=== PATIENT | male | born 1985 | race Hispanic/Latino ===

== ENCOUNTER 2019-01-20 19:18 | Emergency (ER) | payer SELFPAY ==
[~2019-01-20] VITALS: Ht 154.9 cm; Wt 58.5 kg
--- OUTSIDE RECORDS SUMMARY | 2019-01-20 19:21 | XMS REPORT ---
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 Allergies, Adverse Reactions, Alerts Allergy Name Allergy Type Status Severity Reaction(s) Onset Date Inactive Date Treating Clinician Comments hydrocodone DA Active SV 2018-12-20 00:00:00 acetaminophen DA Active SV 2018-12-20 00:00:00 hydrocodone DA Active SV 2018-12-13 00:00:00 acetaminophen DA Active SV 2018-12-13 00:00:00 hydrocodone DA Active SV 2018-10-28 00:00:00 acetaminophen DA Active SV 2018-10-28 00:00:00 No Known Allergies DA Active U 2016-12-02 00:00:00 Medications This patient has no known medications. Encounters Start Date/Time End Date/Time Encounter Type Admission Type Attending Clinicians Care Facility Care Department Encounter ID 2018-10-22 10:16:00 2018-10-22 10:16:00 Emergency E [facility] [id number] 2018-10-20 13:36:00 2018-10-20 13:36:00 Outpatient E [facility] MED [id number] Results Test Description Test Time Test Comments Text Results Atomic Results Result Comments URINALYSIS COMPLETE 2018-12-20 23:26:00 UA COLOR (test code=COLU) YELLOW YELLOW UA APPEARANCE (test code=APPU) CLEAR CLEAR UA GLUCOSE DIPSTICK (test code=DGLUU) NORMAL MG/DL NORMAL UA BILIRUBIN DIPSTICK (test code=BILU) NEGATIVE MG/DL NEGATIVE UA KETONE DIPSTICK (test code=KETU) NEGATIVE MG/DL NEGATIVE UA SPECIFIC GRAVITY (test code=SGU) 1.005 1.003-1.030 UA BLOOD DIPSTICK (test code=TINY) NEGATIVE Yassine/mm3 NEGATIVE UA PH DIPSTICK (test code=VICKI) 7.0 5.0-9.0 UA PROTEIN DIPSTICK (test code=PROU) NEGATIVE MG/DL NEGATIVE UA UROBILINIOGEN DIPSTICK (test code=URO) NORMAL MG/DL NORMAL UA NITRITE DIPSTICK (test code=EMA) NEGATIVE NEGATIVE UA LEUKOCYTE ESTERASE DIPSTICK (test code=LEUU) NEGATIVE /mm3 NEGATIVE UA CULTURE NEEDED? (test code=UACULT) NEGATIVE, NO CULTURE Criteria Culture Chk DRUGS OF ABUSE SCREEN [id number] 23:26:00* Test Item Value Reference Range Comments UR COCAINE (test code=COCAU) NEGATIVE NEGATIVE Cut off Value: 300 ng/mL UR CANNABINOIDS (THC) (test code=CANU) NEGATIVE NEGATIVE Cut off Value: 50 ng/mL UR AMPHETAMINE (test code=AMPHU) NEGATIVE NEGATIVE Cut off Value: 1000 ng/mL UR BARBITURATE QUAL (test code=BARBQLU) NEGATIVE NEGATIVE Cut off Value: 200 ng/mL UR BENZODIAZEPINE (test code=BENZU) NEGATIVE NEGATIVE Cut off Value: 200 ng/mL UR OPIATES QUAL (test code=OPIAQLU) NEGATIVE NEGATIVE Cut off Value: 300 ng/mL UR PHENCYCLIDINE (PCP) (test code=PHENCU) NEGATIVE NEGATIVE Cut off Value: 25 ng/mL URINALYSIS [id number] 23:07:00* Test Item Value Reference Range Comments UA COLOR (test code=COLU) YELLOW YELLOW UA APPEARANCE (test code=APPU) CLEAR CLEAR UA GLUCOSE DIPSTICK (test code=DGLUU) NORMAL MG/DL NORMAL UA BILIRUBIN DIPSTICK (test code=BILU) NEGATIVE MG/DL NEGATIVE UA KETONE DIPSTICK (test code=KETU) NEGATIVE MG/DL NEGATIVE UA SPECIFIC GRAVITY (test code=SGU) 1.005 1.003-1.030 UA BLOOD DIPSTICK (test code=TINY) NEGATIVE Yassine/mm3 NEGATIVE UA PH DIPSTICK (test code=VICKI) 7.0 5.0-9.0 UA PROTEIN DIPSTICK (test code=PROU) NEGATIVE MG/DL NEGATIVE UA UROBILINIOGEN DIPSTICK (test code=URO) NORMAL MG/DL NORMAL UA NITRITE DIPSTICK (test code=EMA) NEGATIVE NEGATIVE UA LEUKOCYTE ESTERASE DIPSTICK (test code=LEUU) NEGATIVE /mm3 NEGATIVE UA CULTURE NEEDED? (test code=UACULT) Criteria Culture Chk DRUGS OF ABUSE SCREEN [id number] 23:07:00* Test Item Value Reference Range Comments UR COCAINE (test code=COCAU) NEGATIVE NEGATIVE Cut off Value: 300 ng/mL UR CANNABINOIDS (THC) (test code=CANU) NEGATIVE NEGATIVE Cut off Value: 50 ng/mL UR AMPHETAMINE (test code=AMPHU) NEGATIVE NEGATIVE Cut off Value: 1000 ng/mL UR BARBITURATE QUAL (test code=BARBQLU) NEGATIVE NEGATIVE Cut off Value: 200 ng/mL UR BENZODIAZEPINE (test code=BENZU) NEGATIVE NEGATIVE Cut off Value: 200 ng/mL UR OPIATES QUAL (test code=OPIAQLU) NEGATIVE NEGATIVE Cut off Value: 300 ng/mL UR PHENCYCLIDINE (PCP) (test code=PHENCU) NEGATIVE NEGATIVE Cut off Value: 25 ng/mL URINALYSIS [id number] 22:48:00* Test Item Value Reference Range Comments UA COLOR (test code=COLU) YELLOW YELLOW UA APPEARANCE (test code=APPU) CLEAR CLEAR UA GLUCOSE DIPSTICK (test code=DGLUU) NORMAL MG/DL NORMAL UA BILIRUBIN DIPSTICK (test code=BILU) NEGATIVE MG/DL NEGATIVE UA KETONE DIPSTICK (test code=KETU) NEGATIVE MG/DL NEGATIVE UA SPECIFIC GRAVITY (test code=SGU) 1.005 1.003-1.030 UA BLOOD DIPSTICK (test code=TINY) NEGATIVE Yassine/mm3 NEGATIVE UA PH DIPSTICK (test code=VICKI) 7.0 5.0-9.0 UA PROTEIN DIPSTICK (test code=PROU) NEGATIVE MG/DL NEGATIVE UA UROBILINIOGEN DIPSTICK (test code=URO) NORMAL MG/DL NORMAL UA NITRITE DIPSTICK (test code=EMA) NEGATIVE NEGATIVE UA LEUKOCYTE ESTERASE DIPSTICK (test code=LEUU) NEGATIVE /mm3 NEGATIVE UA CULTURE NEEDED? (test code=UACULT) Criteria Culture Chk DRUGS OF ABUSE SCREEN [id number] 22:48:00* Test Item Value Reference Range Comments UR COCAINE (test code=COCAU) NEGATIVE UR CANNABINOIDS (THC) (test code=CANU) NEGATIVE UR AMPHETAMINE (test code=AMPHU) NEGATIVE UR BARBITURATE QUAL (test code=BARBQLU) NEGATIVE UR BENZODIAZEPINE (test code=BENZU) NEGATIVE UR OPIATES QUAL (test code=OPIAQLU) NEGATIVE UR PHENCYCLIDINE (PCP) (test code=PHENCU) NEGATIVE POC VENOUS BLOOD [id number] 21:55:00* Test Item Value Reference Range Comments POC LACTIC ACID (test code=POCLAC) 1.27 MMOL/L 0.4-2.0 POC VENOUS BLOOD GAS PH (test code=POCPHV) 7.486 7.35-7.45 POC VENOUS BLOOD GAS PCO2 (test code=JAETCN2Z) 40.8 mmHg 35.0-45.0 POC VENOUS BLOOD GAS PO2 (test code=CRWAG6R) 75.0 mmHG 0-40 POC HCO3 VENOUS (test code=BVPGKQ4K) 30.8 MMOL/L 20-26 POC BASE EXCESS VENOUS (test code=POCBEV) 7 MMOL/L -3.0-3.0 POC O2 SATURATION VENOUS (test code=JQTS8FX) 96 % 72-77 [id number] 21:55:00* Test Item Value Reference Range Comments LIPASE (test code=LIP) 473 UNITS/L 23-300 COMPREHENSIVE METABOLIC [id number] 21:55:00* Test Item Value Reference Range Comments SODIUM (test code=NA) 138 MMOL/L 137-145 POTASSIUM (test code=K) 3.8 MMOL/L 3.5-5.1 CHLORIDE (test code=CL) 100 MMOL/L 98-107 CARBON DIOXIDE (test code=CO2) 27 MMOL/L 22-30 ANION GAP (test code=GAP) 15 MMOL/L 14-24 GLUCOSE (test code=GLU) 129 MG/DL 74-106 BLOOD UREA NITROGEN (test code=BUN) 13 MG/DL 9-20 GLOMERULAR FILTRATION RATE (test code=GFR) > 60 Reporting units: ml/min/1.73 m2 (Modified MDRD Formula)Reference Range: > or=60 ml/min/1.73 m2 CREATININE (test code=CREAT) 0.80 MG/DL 0.66-1.25 TOTAL PROTEIN (test code=PROT) 6.9 G/DL 6.2-7.6 ALBUMIN (test code=ALB) 4.0 G/DL 3.5-5.0 CALCIUM (test code=CA) 9.1 MG/DL 8.4-10.2 BILIRUBIN TOTAL (test code=BILT) 0.8 MG/DL 0.2-1.3 SGOT/AST (test code=AST) 24 UNITS/L 17-59 SGPT/ALT (test code=ALT) 26 UNITS/L 21-72 ALKALINE PHOSPHATASE (test code=ALKP) 60 UNITS/L 38-126 CBC W/AUTO [id number] 21:41:00* Test Item Value Reference Range Comments WHITE BLOOD CELL (test code=WBC) 8.7 K/MM3 3.8-9.8 RED BLOOD CELL (test code=RBC) 4.68 M/MM3 3.95-5.67 HEMOGLOBIN (test code=HGB) 14.3 G/DL 12.4-16.7 HEMATOCRIT (test code=HCT) 41.7 % 35.9-49.5 MEAN CELL VOLUME (test code=MCV) 89 fL 81.7-96.1 MEAN CELL HGB (test code=MCH) 30.6 pg 27.6-33.2 MEAN CELL HGB CONCETRATION (test code=MCHC) 34.3 % 32.9-35.5 RED CELL DISTRIBUTION WIDTH (test code=RDW) 13.0 % 12.1-15.2 PLATELET COUNT (test code=PLT) 187 K/MM3 129-368 MEAN PLATELET VOLUME (test code=MPV) 11.2 fl 7.4-10.4 NEUTROPHIL % (test code=NT%) 67.9 % 43-75 IMMATURE GRANULOCYTE % (test code=IG%) 0.5 % 0.0-2.0 LYMPHOCYTE % (test code=LY%) 20.0 % 14-44 MONOCYTE % (test code=MO%) 11.4 % 4-13 EOSINOPHIL % (test code=EO%) 0.1 % 0-6 BASOPHIL % (test code=BA%) 0.1 % 0-2 NUCLEATED RBC % (test code=NRBC%) 0.0 % 0-1.0 NEUTROPHIL # (test code=NT#) 5.88 K/mm3 2.0-7.6 IMMATURE GRANULOCYTE # (test code=IG#) 0.04 x10 3/uL 0-0.03 LYMPHOCYTE # (test code=LY#) 1.73 K/mm3 1.0-3.8 MONOCYTE # (test code=MO#) 0.99 K/mm3 0.1-0.8 EOSINOPHIL # (test code=EO#) 0.01 K/mm3 0.0-0.2 BASOPHIL # (test code=BA#) 0.01 K/mm3 0.0-0.2 NUCLEATED RBC # (test code=NRBC#) 0.00 K/mm3 0.0-0.1 - US ABDOMEN [id number] 12:04:00 Name: VÍCTOR ANTHONY [facility] : 1985 Age/S: 33 / M [address] [facility] Unit #: [id number] Loc: [place] [address] Phys: Fe Parker MD Acct: [id number] Dis Date: Status: ADM IN PHONE #: [phone] Exam Date: 12/20/2018 1130 FAX #: [phone] Reason: r/o gall stones EXAMS: CPT CODE: [id number] US ABDOMEN COMPLETE 43562 TECHNIQUE - US ABDOMEN COMPLETE . COMPARISON: CT abdomen and pelvis 12/13/2018 HISTORY: 33 years Male r/o gall stones FINDINGS: Pancreas: Normal in size and echogenicity. No focal lesions or pancreatic duct dilatation. Liver: Normal size. Normal echogenicity. No focal lesions. Liver measures 14.7 cm. Normal flow in the portal vein towards the liver. Gallbladder: Normal in distention. No stones. No wall thickening. Gallbladder wall measures 0.15cm. No pericholecystic fluid. Negative ultrasound Lamb sign. Biliary ducts: No intra or extrahepatic biliary dilatation. Common bile duct (CBD) measures 0.18 cm. Spleen: Normal echogenicity. 10.8 x 4.2 x 4.1 cm. Right Kidney: 10.2 x 4.1 x 5.1 cm. Normal echogenicity. No stones. No hydronephrosis. No focal lesions. Left Kidney: 11.2 x 4.9 x 5.4 cm. Normal echogenicity. No stones. No hydronephrosis. No focal lesions. Other: No ascites. IMPRESSION: No abnormalities demonstrated. No gallstones. at 1204 Reported and signed by: Jeovany Morse M.D. PAGE 1 Signed Report (CONTINUED) Name: VÍCTOR ANTHONY [facility] : 1985 Age/S: 33 / M [address] [facility] Unit #: [id number] Loc: [place] [address] Phys: Fe Parker MD Acct: [id number] Dis Date: Status: ADM IN PHONE #: [phone] Exam Date: 12/20/2018 1130 FAX #: [phone] Reason: r/o gall stones EXAMS: CPT CODE: [id number] US ABDOMEN COMPLETE 18650 <Continued> CC: Fe Parker MD; Elizabeth Wang MD Technologist: TONI ANAND RT(R),[facility] Trnnyb Date/Time: 12/20/2018 (1204) t.PHILIPPE Orig Print D/T: S: 12/20/2018 (4523) Probe: PAGE 2 Signed Report BASIC METABOLIC [id number] 06:41:00* Test Item Value Reference Range Comments SODIUM (test code=NA) 138 mmol/L 136-145 POTASSIUM (test code=K) 4.4 mmol/L 3.5-5.1 CHLORIDE (test code=CL) 102.0 mmol/L 98-107 CARBON DIOXIDE (test code=CO2) 21.0 mmol/L 21-32 ANION GAP (test code=GAP) 19.4 10-20 GLUCOSE (test code=GLU) 114 mg/dL 74-106 BLOOD UREA NITROGEN (test code=BUN) 19 mg/dL 7-18 GLOMERULAR FILTRATION RATE (test code=GFR) > 60 mL/min >=60 Estimated GFR by using Modified MDRD formula.Chronic kidney disease is defined as either kidney damageor GFR <60 mL/min/1.73 m2 for >3 months. CREATININE (test code=CREAT) 0.90 mg/dL 0.7-1.3 BUN/CREATININE RATIO (test code=BUN/CREA) 21.1 10-20 CALCIUM (test code=CA) 8.8 mg/dL 8.5-10.1 HEPATIC FUNCTION [id number] 06:41:00* Test Item Value Reference Range Comments TOTAL PROTEIN (test code=PROT) 7.5 gram/dL 6.4-8.2 ALBUMIN (test code=ALB) 4.3 g/dL 3.4-5.0 GLOBULIN (test code=GLOB) 3.2 gram/dL 2.7-4.2 ALBUMIN/GLOBULIN RATIO (test code=A/G) 1.3 0.75-1.50 BILIRUBIN TOTAL (test code=BILT) 1.00 mg/dL 0.0-1.0 BILIRUBIN DIRECT (test code=BILD) 0.21 mg/dL 0.0-0.20 SGOT/AST (test code=AST) 22 IUnit/L 15-37 SGPT/ALT (test code=ALT) 32 IUnit/L 12-78 ALKALINE PHOSPHATASE TOTAL (test code=ALKP) 91 IUnit/L 45-117 Note change in reference range due to change in reagent. [id number] 06:41:00* Test Item Value Reference Range Comments LIPASE (test code=LIP) 1130 U/L 73.0-393.0 BASIC METABOLIC [id number] 06:33:00* Test Item Value Reference Range Comments SODIUM (test code=NA) 138 mmol/L 136-145 POTASSIUM (test code=K) 4.4 mmol/L 3.5-5.1 CHLORIDE (test code=CL) 102.0 mmol/L 98-107 CARBON DIOXIDE (test code=CO2) mmol/L 21-32 ANION GAP (test code=GAP) 10-20 GLUCOSE (test code=GLU) mg/dL 74-106 BLOOD UREA NITROGEN (test code=BUN) mg/dL 7-18 GLOMERULAR FILTRATION RATE (test code=GFR) mL/min >=60 CREATININE (test code=CREAT) mg/dL 0.7-1.3 BUN/CREATININE RATIO (test code=BUN/CREA) 10-20 CALCIUM (test code=CA) mg/dL 8.5-10.1 HEPATIC FUNCTION [id number] 06:33:00* Test Item Value Reference Range Comments TOTAL PROTEIN (test code=PROT) gram/dL 6.4-8.2 ALBUMIN (test code=ALB) g/dL 3.4-5.0 GLOBULIN (test code=GLOB) gram/dL 2.7-4.2 ALBUMIN/GLOBULIN RATIO (test code=A/G) 0.75-1.50 BILIRUBIN TOTAL (test code=BILT) mg/dL 0.0-1.0 BILIRUBIN DIRECT (test code=BILD) mg/dL 0.0-0.20 SGOT/AST (test code=AST) IUnit/L 15-37 SGPT/ALT (test code=ALT) IUnit/L 12-78 ALKALINE PHOSPHATASE TOTAL (test code=ALKP) IUnit/L 45-117 [id number] 06:33:00* Test Item Value Reference Range Comments LIPASE (test code=LIP) U/L 73.0-393.0 CBC W/O [id number] 04:37:00* Test Item Value Reference Range Comments WHITE BLOOD CELL (test code=WBC) K/mm3 4.5-12.5 RED BLOOD CELL (test code=RBC) mill/mm3 4.0-5.8 HEMOGLOBIN (test code=HGB) gram/dL 13.0-17.5 HEMATOCRIT (test code=HCT) 51.8 % 42.0-52.0 MEAN CELL VOLUME (test code=MCV) fL 80-98 MEAN CELL HGB (test code=MCH) picogram 27.0-33.0 MEAN CELL HGB CONCETRATION (test code=MCHC) gram/dL 33.0-36.0 RED CELL DISTRIBUTION WIDTH (test code=RDW) % 11.6-16.2 PLATELET COUNT (test code=PLT) K/mm3 150-450 MEAN PLATELET VOLUME (test code=MPV) fL 6.7-11.0 CBC W/O [id number] 04:37:00* Test Item Value Reference Range Comments WHITE BLOOD CELL (test code=WBC) 9.6 K/mm3 4.5-12.5 RED BLOOD CELL (test code=RBC) 5.87 mill/mm3 4.0-5.8 HEMOGLOBIN (test code=HGB) 17.7 gram/dL 13.0-17.5 HEMATOCRIT (test code=HCT) 51.8 % 42.0-52.0 MEAN CELL VOLUME (test code=MCV) 88.2 fL 80-98 MEAN CELL HGB (test code=MCH) 30.2 picogram 27.0-33.0 MEAN CELL HGB CONCETRATION (test code=MCHC) 34.2 gram/dL 33.0-36.0 RED CELL DISTRIBUTION WIDTH (test code=RDW) 12.6 % 11.6-16.2 PLATELET COUNT (test code=PLT) 216 K/mm3 150-450 MEAN PLATELET VOLUME (test code=MPV) 10.8 fL 6.7-11.0 BASIC METABOLIC [id number] 21:02:00* Test Item Value Reference Range Comments SODIUM (test code=NA) 137 mmol/L 136-145 POTASSIUM (test code=K) 3.8 mmol/L 3.5-5.1 CHLORIDE (test code=CL) 102.0 mmol/L 98-107 CARBON DIOXIDE (test code=CO2) 24.0 mmol/L 21-32 ANION GAP (test code=GAP) 14.8 10-20 GLUCOSE (test code=GLU) 107 mg/dL 74-106 BLOOD UREA NITROGEN (test code=BUN) 19 mg/dL 7-18 GLOMERULAR FILTRATION RATE (test code=GFR) > 60 mL/min >=60 Estimated GFR by using Modified MDRD formula.Chronic kidney disease is defined as either kidney damageor GFR <60 mL/min/1.73 m2 for >3 months. CREATININE (test code=CREAT) 0.90 mg/dL 0.7-1.3 BUN/CREATININE RATIO (test code=BUN/CREA) 21.1 10-20 CALCIUM (test code=CA) 9.5 mg/dL 8.5-10.1 CBC W/O [id number] 20:56:00* Test Item Value Reference Range Comments WHITE BLOOD CELL (test code=WBC) 13.3 K/mm3 4.5-12.5 RED BLOOD CELL (test code=RBC) 5.71 mill/mm3 4.0-5.8 HEMOGLOBIN (test code=HGB) 17.5 gram/dL 13.0-17.5 HEMATOCRIT (test code=HCT) 50.2 % 42.0-52.0 MEAN CELL VOLUME (test code=MCV) 87.9 fL 80-98 MEAN CELL HGB (test code=MCH) 30.6 picogram 27.0-33.0 MEAN CELL HGB CONCETRATION (test code=MCHC) 34.9 gram/dL 33.0-36.0 RED CELL DISTRIBUTION WIDTH (test code=RDW) 12.7 % 11.6-16.2 PLATELET COUNT (test code=PLT) 223 K/mm3 150-450 MEAN PLATELET VOLUME (test code=MPV) 11.1 fL 6.7-11.0 - CT HEAD/BRAIN W/O [id number] 20:20:00 Name: VÍTCOR ANTHONY [facility] : 1985 Age/S: 33 / M [address] [facility] Unit #: [id number] Loc: [place] [address] Phys: Yunior Jimenez MD Acct: [id number] Dis Date: Status: REG ER PHONE #: [phone] Exam Date: 12/19/20182014 FAX #: [phone] Reason: Seizure EXAMS: CPT CODE: [id number] CT HEAD/BRAIN W/O CONT 58039 EXAM: CT of the head; INFORMATION: Seizure; TECHNIQUE AND FINDINGS: CT dose reduction protocol; The ventricles are symmetric and of normal diameter; normal width of basilar cisterns and sulci; normal stephens/white matter differentiation; no evidence of intra or extra-axial hemorrhage, mass lesion or midline shift. Bone windows show no abnormalities. IMPRESSION: Normal CT scan of the head. No change c ompared with a study from April 13, 2015. Electronically S igned by Andi Phillips on 12/19/2018 at 2020 Reported and signed by: Rafal Phillips M.D. CC: Yunior Jimenez MD Technologist:Bennett Anthony, RT(R)(CT); ... CTDI: DLP: Trnscb Date/Time: 12/19/2018 (2019) JasperGRW Orig Print D/T: S: 12/19/2018 (2022) PAGE 1 Signed Report - CT ABD PELVIS [id number] 14:08:00 Patient Name: VÍCTOR ANTHONY Unit No: [id number] EXAMS: CPT CODE: [id number] CT ABD PELVIS W/CONT 03075 Site ID: [id number] CLINICAL HISTORY: Nausea and vomiting, history of ulcerative colitis TECHNIQUE: Axial images of the abdomen and pelvis were obtained from diaphragm to the pubic symphysis with intravenous contrast. CT dose lowering technique utilized, with adjustment of MA/kV according to patient size and automated exposure control. COMPARISON: CT abdomen and pelvis August 01, 2016 DISCUSSION: The lung bases are clear. The heart size is normal. The liver is normal in size and contour, without focal abnormality. The gallbladder is unrem arkable. No biliary ductal dilatation. The spleen, pancreas and a drenal glands are unremarkable. Both kidneys are normal in size. No hydronephrosis or enhancing renal mass. Vascular structu res are normal in caliber and appearance. The small and large hayes l are unremarkable. Appendix is normal. No abdominal, pelvic or r etroperitoneal adenopathy. Prostate gland is normal in caliber, ur inary bladder is not well distended for evaluation. L5 spond ylolysis is noted, there are broad-based L2-S1 disc protrusions. No acute bony finding. IMPRESSION: No acute inflamma tory change or acute finding demonstrated Electronically S igned by Nakul Brito MD on 12/13/2018 at 1408 Reported an d signed by: Nakul Brito MD CC: Ramos Timmons MD Technologist: Jasvir Matos, RT(R); Osman CTDI: DLP: Trnscrpt: 12/13/2018 (1408) [id number] NAME: VÍCTOR ANTHONY [address] PHYS: [place] [address] : 1985 AGE: 33 SEX: M [facility] #: [phone] EXAM DATE: 12/13/2018 STATUS: REG ER FAX #: [phone] RAD #: D/C DT PAGE 1 Signed Report Patient Name: VÍCTOR ANTHONY Unit No: [id number] EXAMS: CPT CODE: [id number] CT ABD PELVIS W/CONT 80602 <Continued> Orig Print D/T: S: 12/13/2018 (1411) [facility] NAME: VÍCTOR ANTHONY [address] PHYS: [place] [address] : 1985 AGE: 33 SEX: M LOC: [facility] PHONE #: [phone] EXAM DATE: 12/13/2018 STATUS: REG ER FAX #: [phone] RAD #: D/C DT PAGE 2 Signed Report URINALYSIS [id number] 13:39:00* Test Item Value Reference Range Comments UA COLOR (test code=COLU) YELLOW YELLOW UA APPEARANCE (test code=APPU) CLEAR CLEAR UA GLUCOSE DIPSTICK (test code=DGLUU) NORMAL MG/DL NORMAL UA BILIRUBIN DIPSTICK (test code=BILU) NEGATIVE MG/DL NEGATIVE UA KETONE DIPSTICK (test code=KETU) NEGATIVE MG/DL NEGATIVE UA SPECIFIC GRAVITY (test code=SGU) 1.020 1.003-1.030 UA BLOOD DIPSTICK (test code=TINY) NEGATIVE Yassine/mm3 NEGATIVE UA PH DIPSTICK (test code=VICKI) 6.0 5.0-9.0 UA PROTEIN DIPSTICK (test code=PROU) 30 MG/DL NEGATIVE UA UROBILINIOGEN DIPSTICK (test code=URO) NORMAL MG/DL NORMAL UA NITRITE DIPSTICK (test code=EMA) NEGATIVE NEGATIVE UA LEUKOCYTE ESTERASE DIPSTICK (test code=LEUU) TRACE /mm3 NEGATIVE UA CULTURE NEEDED? (test code=UACULT) NO, WBC<10 Criteria Culture Chk UA [id number] 13:39:00* Test Item Value Reference Range Comments UA RBC (test code=RBCU) NONE RBC/HPF 0-3 UA WBC (test code=XWBCU) 0-3 WBC/HPF 0-5 UA EPITHELIAL CELLS (test code=EPIU) NONE EPI/HPF FEW UA BACTERIA (test code=XBACU) NONE NONE URINALYSIS [id number] 13:33:00* Test Item Value Reference Range Comments UA COLOR (test code=COLU) YELLOW YELLOW UA APPEARANCE (test code=APPU) CLEAR CLEAR UA GLUCOSE DIPSTICK (test code=DGLUU) NORMAL MG/DL NORMAL UA BILIRUBIN DIPSTICK (test code=BILU) NEGATIVE MG/DL NEGATIVE UA KETONE DIPSTICK (test code=KETU) NEGATIVE MG/DL NEGATIVE UA SPECIFIC GRAVITY (test code=SGU) 1.020 1.003-1.030 UA BLOOD DIPSTICK (test code=TINY) NEGATIVE Yassine/mm3 NEGATIVE UA PH DIPSTICK (test code=VICKI) 6.0 5.0-9.0 UA PROTEIN DIPSTICK (test code=PROU) 30 MG/DL NEGATIVE UA UROBILINIOGEN DIPSTICK (test code=URO) NORMAL MG/DL NORMAL UA NITRITE DIPSTICK (test code=EMA) NEGATIVE NEGATIVE UA LEUKOCYTE ESTERASE DIPSTICK (test code=LEUU) TRACE /mm3 NEGATIVE UA CULTURE NEEDED? (test code=UACULT) Criteria Culture Chk UA [id number] 13:33:00* Test Item Value Reference Range Comments UA RBC (test code=RBCU) RBC/HPF 0-3 UA WBC (test code=XWBCU) WBC/HPF 0-5 UA EPITHELIAL CELLS (test code=EPIU) EPI/HPF FEW UA BACTERIA (test code=XBACU) NONE URINALYSIS [id number] 13:33:00* Test Item Value Reference Range Comments UA COLOR (test code=COLU) YELLOW YELLOW UA APPEARANCE (test code=APPU) CLEAR CLEAR UA GLUCOSE DIPSTICK (test code=DGLUU) NORMAL MG/DL NORMAL UA BILIRUBIN DIPSTICK (test code=BILU) NEGATIVE MG/DL NEGATIVE UA KETONE DIPSTICK (test code=KETU) NEGATIVE MG/DL NEGATIVE UA SPECIFIC GRAVITY (test code=SGU) 1.020 1.003-1.030 UA BLOOD DIPSTICK (test code=TINY) NEGATIVE [place]/mm3 NEGATIVE UA PH DIPSTICK (test code=VICKI) 6.0 5.0-9.0 UA PROTEIN DIPSTICK (test code=PROU) 30 MG/DL NEGATIVE UA UROBILINIOGEN DIPSTICK (test code=URO) NORMAL MG/DL NORMAL UA NITRITE DIPSTICK (test code=EMA) NEGATIVE NEGATIVE UA LEUKOCYTE ESTERASE DIPSTICK (test code=LEUU) TRACE /mm3 NEGATIVE UA CULTURE NEEDED? (test code=UACULT) Criteria Culture Chk UA [id number] 13:33:00* Test Item Value Reference Range Comments UA RBC (test code=RBCU) RBC/HPF 0-3 UA WBC (test code=XWBCU) WBC/HPF 0-5 UA EPITHELIAL CELLS (test code=EPIU) EPI/HPF FEW UA BACTERIA (test code=XBACU) NONE COMPREHENSIVE METABOLIC [id number] 13:09:00* Test Item Value Reference Range Comments SODIUM (test code=NA) 146 MMOL/L 137-145 POTASSIUM (test code=K) 3.7 MMOL/L 3.5-5.1 CHLORIDE (test code=CL) 105 MMOL/L 98-107 CARBON DIOXIDE (test code=CO2) 25 MMOL/L 22-30 ANION GAP (test code=GAP) 20 MMOL/L 14-24 GLUCOSE (test code=GLU) 120 MG/DL 74-106 BLOOD UREA NITROGEN (test code=BUN) 15 MG/DL 9-20 GLOMERULAR FILTRATION RATE (test code=GFR) > 60 Reporting units: ml/min/1.73 m2 (Modified MDRD Formula)Reference Range: > or=60 ml/min/1.73 m2 CREATININE (test code=CREAT) 0.90 MG/DL 0.66-1.25 TOTAL PROTEIN (test code=PROT) 8.8 G/DL 6.2-7.6 ALBUMIN (test code=ALB) 5.1 G/DL 3.5-5.0 CALCIUM (test code=CA) 10.0 MG/DL 8.4-10.2 BILIRUBIN TOTAL (test code=BILT) 0.6 MG/DL 0.2-1.3 SGOT/AST (test code=AST) 29 UNITS/L 17-59 SGPT/ALT (test code=ALT) 24 UNITS/L 21-72 ALKALINE PHOSPHATASE (test code=ALKP) 93 UNITS/L 38-126 [id number] 13:09:00* Test Item Value Reference Range Comments LIPASE (test code=LIP) 258 UNITS/L 23-300 CBC W/AUTO [id number] 12:41:00* Test Item Value Reference Range Comments WHITE BLOOD CELL (test code=WBC) 13.2 K/MM3 3.8-9.8 RED BLOOD CELL (test code=RBC) 5.39 M/MM3 3.95-5.67 HEMOGLOBIN (test code=HGB) 16.4 G/DL 12.4-16.7 HEMATOCRIT (test code=HCT) 48.3 % 35.9-49.5 MEAN CELL VOLUME (test code=MCV) 90 fL 81.7-96.1 MEAN CELL HGB (test code=MCH) 30.4 pg 27.6-33.2 MEAN CELL HGB CONCETRATION (test code=MCHC) 34.0 % 32.9-35.5 RED CELL DISTRIBUTION WIDTH (test code=RDW) 13.1 % 12.1-15.2 PLATELET COUNT (test code=PLT) 242 K/MM3 129-368 MEAN PLATELET VOLUME (test code=MPV) 11.6 fl 7.4-10.4 NEUTROPHIL % (test code=NT%) 73.5 % 43-75 IMMATURE GRANULOCYTE % (test code=IG%) 0.6 % 0.0-2.0 LYMPHOCYTE % (test code=LY%) 16.7 % 14-44 MONOCYTE % (test code=MO%) 7.1 % 4-13 EOSINOPHIL % (test code=EO%) 1.7 % 0-6 BASOPHIL % (test code=BA%) 0.4 % 0-2 NUCLEATED RBC % (test code=NRBC%) 0.0 % 0-1.0 NEUTROPHIL # (test code=NT#) 9.71 K/mm3 2.0-7.6 IMMATURE GRANULOCYTE # (test code=IG#) 0.08 x10 3/uL 0-0.03 LYMPHOCYTE # (test code=LY#) 2.21 K/mm3 1.0-3.8 MONOCYTE # (test code=MO#) 0.94 K/mm3 0.1-0.8 EOSINOPHIL # (test code=EO#) 0.23 K/mm3 0.0-0.2 BASOPHIL # (test code=BA#) 0.05 K/mm3 0.0-0.2 NUCLEATED RBC # (test code=NRBC#) 0.00 K/mm3 0.0-0.1 COMPREHENSIVE METABOLIC [id number] 05:09:00* Test Item Value Reference Range Comments SODIUM (test code=NA) 141 mmol/L 136-145 POTASSIUM (test code=K) 3.6 mmol/L 3.5-5.1 CHLORIDE (test code=CL) 107.0 mmol/L 98-107 CARBON DIOXIDE (test code=CO2) 26.0 mmol/L 21-32 ANION GAP (test code=GAP) 11.6 10-20 GLUCOSE (test code=GLU) 121 mg/dL 74-106 BLOOD UREA NITROGEN (test code=BUN) 8 mg/dL 7-18 GLOMERULAR FILTRATION RATE (test code=GFR) > 60 mL/min >=60 Estimated GFR by using Modified MDRD formula.Chronic kidney disease is defined as either kidney damageor GFR <60 mL/min/1.73 m2 for >3 months. CREATININE (test code=CREAT) 0.80 mg/dL 0.7-1.3 BUN/CREATININE RATIO (test code=BUN/CREA) 10.0 10-20 TOTAL PROTEIN (test code=PROT) 6.9 gram/dL 6.4-8.2 ALBUMIN (test code=ALB) 3.7 g/dL 3.4-5.0 GLOBULIN (test code=GLOB) 3.2 gram/dL 2.7-4.2 ALBUMIN/GLOBULIN RATIO (test code=A/G) 1.2 0.75-1.50 CALCIUM (test code=CA) 8.5 mg/dL 8.5-10.1 BILIRUBIN TOTAL (test code=BILT) 0.20 mg/dL 0.0-1.0 SGOT/AST (test code=AST) 13 IUnit/L 15-37 SGPT/ALT (test code=ALT) 25 IUnit/L 12-78 ALKALINE PHOSPHATASE TOTAL (test code=ALKP) 95 IUnit/L 45-117 Note change in reference range due to change in reagent. URINALYSIS W/O [id number] 04:58:00* Test Item Value Reference Range Comments UA COLOR (test code=COLU) YELLOW YELLOW UA APPEARANCE (test code=APPU) CLEAR CLEAR UA GLUCOSE DIPSTICK (test code=DGLUU) NEGATIVE mg/dL NEGATIVE UA BILIRUBIN DIPSTICK (test code=BILU) NEGATIVE mg/dL NEGATIVE UA KETONE DIPSTICK (test code=KETU) NEGATIVE mg/dL NEGATIVE UA SPECIFIC GRAVITY (test code=SGU) 1.020 1.001-1.035 UA BLOOD DIPSTICK (test code=TINY) Negative mg/dL NEGATIVE UA PH DIPSTICK (test code=VICKI) 6.0 5.0-8.0 UA PROTEIN DIPSTICK (test code=PROU) NEGATIVE mg/dL NEGATIVE UA UROBILINIOGEN DIPSTICK (test code=URO) NEGATIVE mg/dL NEGATIVE UA NITRITE DIPSTICK (test code=EMA) NEGATIVE NEGATIVE UA LEUKOCYTE ESTERASE W REFLEX (test code=LEUUR) NEGATIVE Estelita/uL NEGATIVE COMPREHENSIVE METABOLIC [id number] 04:56:00* Test Item Value Reference Range Comments SODIUM (test code=NA) 141 mmol/L 136-145 POTASSIUM (test code=K) 3.6 mmol/L 3.5-5.1 CHLORIDE (test code=CL) 107.0 mmol/L 98-107 CARBON DIOXIDE (test code=CO2) mmol/L 21-32 ANION GAP (test code=GAP) 10-20 GLUCOSE (test code=GLU) mg/dL 74-106 BLOOD UREA NITROGEN (test code=BUN) mg/dL 7-18 GLOMERULAR FILTRATION RATE (test code=GFR) mL/min >=60 CREATININE (test code=CREAT) mg/dL 0.7-1.3 BUN/CREATININE RATIO (test code=BUN/CREA) 10-20 TOTAL PROTEIN (test code=PROT) gram/dL 6.4-8.2 ALBUMIN (test code=ALB) g/dL 3.4-5.0 GLOBULIN (test code=GLOB) gram/dL 2.7-4.2 ALBUMIN/GLOBULIN RATIO (test code=A/G) 0.75-1.50 CALCIUM (test code=CA) mg/dL 8.5-10.1 BILIRUBIN TOTAL (test code=BILT) mg/dL 0.0-1.0 SGOT/AST (test code=AST) IUnit/L 15-37 SGPT/ALT (test code=ALT) IUnit/L 12-78 ALKALINE PHOSPHATASE TOTAL (test code=ALKP) IUnit/L 45-117 CBC W/AUTO [id number] 04:50:00* Test Item Value Reference Range Comments WHITE BLOOD CELL (test code=WBC) 11.5 K/mm3 4.5-12.5 RED BLOOD CELL (test code=RBC) 4.79 mill/mm3 4.0-5.8 HEMOGLOBIN (test code=HGB) 14.2 gram/dL 13.0-17.5 HEMATOCRIT (test code=HCT) 44.4 % 42.0-52.0 MEAN CELL VOLUME (test code=MCV) 92.7 fL 80-98 MEAN CELL HGB (test code=MCH) 29.6 picogram 27.0-33.0 MEAN CELL HGB CONCETRATION (test code=MCHC) 32.0 gram/dL 33.0-36.0 RED CELL DISTRIBUTION WIDTH (test code=RDW) 12.9 % 11.6-16.2 RED CELL DISTRIBUTION WIDTH SD (test code=RDW-SD) 43.9 fL 37.0-51.0 PLATELET COUNT (test code=PLT) 192 K/mm3 150-450 MEAN PLATELET VOLUME (test code=MPV) 11.1 fL 6.7-11.0 NEUTROPHIL % (test code=NT%) 79.4 % 39.0-69.0 IMMATURE GRANULOCYTE % (test code=IG%) 0.4 % 0.0-5.0 LYMPHOCYTE % (test code=LY%) 12.1 % 25.0-55.0 MONOCYTE % (test code=MO%) 6.3 % 0.0-10.0 EOSINOPHIL % (test code=EO%) 1.6 % 0.0-5.0 BASOPHIL % (test code=BA%) 0.2 % 0.0-1.0 NUCLEATED RBC % (test code=NRBC%) 0.0 % 0-0 NEUTROPHIL # (test code=NT#) 9.16 K/mm3 1.8-7.7 IMMATURE GRANULOCYTE # (test code=IG#) 0.05 x10 3/uL 0-0.03 LYMPHOCYTE # (test code=LY#) 1.39 K/mm3 1.0-5.0 MONOCYTE # (test code=MO#) 0.72 K/mm3 0-0.8 EOSINOPHIL # (test code=EO#) 0.18 K/mm3 0.0-0.5 BASOPHIL # (test code=BA#) 0.02 K/mm3 0.0-0.2 NUCLEATED RBC # (test code=NRBC#) 0.00 K/mm3 0.0-0.1 CBC W/AUTO [id number] 04:49:00* Test Item Value Reference Range Comments WHITE BLOOD CELL (test code=WBC) K/mm3 4.5-12.5 RED BLOOD CELL (test code=RBC) mill/mm3 4.0-5.8 HEMOGLOBIN (test code=HGB) 14.2 gram/dL 13.0-17.5 HEMATOCRIT (test code=HCT) 44.4 % 42.0-52.0 MEAN CELL VOLUME (test code=MCV) fL 80-98 MEAN CELL HGB (test code=MCH) picogram 27.0-33.0 MEAN CELL HGB CONCETRATION (test code=MCHC) gram/dL 33.0-36.0 RED CELL DISTRIBUTION WIDTH (test code=RDW) % 11.6-16.2 RED CELL DISTRIBUTION WIDTH SD (test code=RDW-SD) fL 37.0-51.0 PLATELET COUNT (test code=PLT) K/mm3 150-450 MEAN PLATELET VOLUME (test code=MPV) fL 6.7-11.0 NEUTROPHIL % (test code=NT%) % 39.0-69.0 IMMATURE GRANULOCYTE % (test code=IG%) % 0.0-5.0 LYMPHOCYTE % (test code=LY%) % 25.0-55.0 MONOCYTE % (test code=MO%) % 0.0-10.0 EOSINOPHIL % (test code=EO%) % 0.0-5.0 BASOPHIL % (test code=BA%) % 0.0-1.0 NEUTROPHIL # (test code=NT#) K/mm3 1.8-7.7 LYMPHOCYTE # (test code=LY#) K/mm3 1.0-5.0 MONOCYTE # (test code=MO#) K/mm3 0-0.8 EOSINOPHIL # (test code=EO#) K/mm3 0.0-0.5 BASOPHIL # (test code=BA#) K/mm3 0.0-0.2 CT MAXILLOFACIAL WO [id number] 19:24:22CT MaxillofacialLOCATION: R 16HISTORY: . Technique: Contiguous axial and direct coronal images through thethrough the facial bones was performed without contrast. One or more ofthe following dose reduction techniques were used: Automated exposurecontrol, adjustment of the mA and/or kV according to patient size, and/or utilization of iterative reconstruction technique. Comparisons: None.Findings:Multiple bilateral cavities are present. There is lucency around theright maxillary bicuspids and molars consistent with periapicalabscesses. There is also lucency around the roots of the maxillary andmandibular molars on the left consistent with significant periodontaldisease and probable periapical abscesses. No si gnificant subperiostealabscess or fluid collection is identified. However evalua tion is limitedwithout contrast.The paranasal sinuses are clear. The paranasal s inuses are well aerated.There are nasal bone fractures on the right. The left na mikie bone isintact. No other facial fracture is identified.The retro-orbital soft tissues, globes and visualized brain parenchymado not demonstrate acute abnorma lity.Impression:1. Multiple bilateral cavities and significant periodontal disea se withprobable periapical abscesses. No definite subperiosteal abscess orfluid collection. However evaluation is limited without contrast.2. Right nasal bone f ractures. CT SCAN OF THE HEAD WITHOUT CONTRAST: R 16History: seizur eComparison:None.Technique: Unenhanced axial images were obtained through the he ad. Oneor more of the following dose reduction techniques were used: Automatedex posure control, adjustment of the mA and/or kV according to patientsize, and/ or utilization of iterative reconstruction technique. Findings: The brain parenchyma is unremarkable. No mass, mid line shift,edema or hemorrhage is tiffany ntified. There is no evidence of acute whitematter abnormality.No extra-axial fl uid collection is present. Theventricular system is within normal limits. No acute soft tissue or bony calvarial abnormality is seen. IMPRESSION:1. No acute intracranial abnormality.CT HEAD OR BRAIN WO [id number] 19:18:18Location code: R 15HISTORY: Seizure COMPARISON: None.TECHNIQUE: Serial axial scans of the brain were obtained without the useof intravenous contrasted in brain and bone window settings.FINDINGS: The ventricles and subarachnoid spaces are normal without evidence ofhydrocephalus, shift of midline or mass effect present.No evidence of subarachnoid hemorrhage, intracerebral hematoma orextra-axial fluid collections are present.Visualized portions of the brain parenchyma show no areas of abnormalsignal intensity to suggest mass lesion, acute CVA, or contusion.Osseous structures, surrounding soft tissues, sinuses and mastoids areunremarkable.If Symptomatology persist correlation with MRI is suggested.IMPRESSION:1. Unremarkable nonenhanced CT scan of the brain.Comprehensive Metabolic [id number] 19:00:00* Test Item Value Reference Range Comments Sodium (test code=NA) 139 mmol/L 135-145 Potassium (test code=K) 4.1 mmol/L 3.5-5.1 Chloride (test code=CL) 102 mmol/L 98-105 Carbon Dioxide (test code=CO2) 27 mmol/L 22-29 Glucose (test code=GLU) 94 mg/dL 70-115 Blood Urea Nitrogen (test code=BUN) 8 mg/dL 6-20 Creatinine (test code=CREAT) 0.9 mg/dL 0.7-1.2 Calcium (test code=CA) 8.9 mg/dL 8.3-10.5 Prot Total (test code=TP) 6.3 g/dL 6.4-8.3 Albumin (test code=ALB) 4.1 g/dL 3.5-5.2 A/G Ratio (test code=AGRATIO) 1.9 Ratio Globulin (test code=GLOB) 2.2 2.9-3.1 Bili Total (test code=TBIL) 0.5 mg/dL 0.1-0.9 Alk Phos (test code=APHOS) 67 U/L 40-129 AST (test code=AST) 15 U/L 1-40 ALT (test code=ALT) 11 U/L 1-41 BUN/Creatinine Ratio (test code=BCRATIO) 8.9 Anion Gap (test code=AGAP) 10 mmol/L 7-16 Estimated GFR (test code=GFR) >60 mL/min/1.73m2 eGFR (estimated Glomerular Filtration Rate) is an estimated value,calculated from the patient's serum creatinine using the MDRD equation.It is NOT the patient's actual GFR. The eGFR provides a more clinicallyuseful measure of kidney disease than serum creatinine alone.This calculation takes sex and race into account, if the informationis provided. If the race is not provided, and the patient isAfrican-Lao, multiply by 1.212. If sex is not provided, and thepatient is female, multiply by 0.742. Results for patients <18 years ofage have not been validated by the MDRD study and should be interpretedwith caution.eGFR Result Interpretation:eGFR > or=60 is in the Normal RangeeGFR < 60 may mean kidney diseaseeGFR < 15 may mean kidney failureRanges recommended by the National Kidney Foundat ion,http://nkdep.nih.gov CBC with [id number] 18:53:00* Test Item Value Reference Range Comments WBC (test code=WBC) 6.5 K/cumm 4.4-10.5 RBC (test code=RBC) 4.56 M/cumm 4.10-5.70 Hemoglobin (test code=HGB) 14.0 gm/dL 13.4-17.4 Hematocrit (test code=HCT) 40.8 % 38.7-52.0 MCV (test code=MCV) 89.5 fL 80-100 MCH (test code=MCH) 30.8 pg 27.0-32.5 MCHC (test code=MCHC) 34.4 g/dL 32.0-37.5 RDW (test code=RDW) 12.0 % 11.5-14.5 Platelet Count (test code=PLTCT) 163 K/cumm 140-440 MPV (test code=MPV) 9.0 fL Diff Method (test code=DIFFM) Auto Neutrophil (test code=NEUT) 74.8 % 36-70 Lymphocyte (test code=LYMPH) 16.5 % 12-44 Monocyte (test code=MONO) 8.0 % 0-11 Eosinophil (test code=EOS) 0.5 % 0-7 Basophil (test code=BASO) 0.3 % 0-2 Neutro Abs (test code=ANEUT) 4.9 K/cumm 1.6-7.4 Lymph Abs (test code=ALYMPH) 1.1 K/cumm 0.5-4.6 Giles Abs (test code=AMONO) 0.5 K/cumm 0.0-1.2 Eos Abs (test code=AEOS) 0.03 K/cumm 0.00-0.74 Baso Abs (test code=ABASO) 0.0 K/cumm 0.00-0.21
[2019-01-20 19:41] LABS: BASOPHILS % 0.1 % (0.0-1.0); HEMATOCRIT 46.5 % (38.2-49.6); HEMOGLOBIN 16.1 g/dL (14.0-18.0); LYMPHOCYTES # (AUTO) 0.6 (1.0-3.2); LYMPHOCYTES % 4.7 % (18.0-39.1); MEAN CORPUSCULAR HEMOGLOBIN 30.6 pg (28-32); MEAN CORPUSCULAR HGB CONC 34.6 g/dL (31-35); MEAN CORPUSCULAR VOLUME 88.4 fL (81-99); MONOCYTES # (AUTO) 0.5 (0.2-0.8); MONOCYTES % 4.4 % (4.4-11.3); NEUTROPHILS # (AUTO) 10.5 (2.1-6.9); NEUTROPHILS % 90.4 % (38.7-80.0); PLATELET COUNT 247 x10e3/uL (140-360); RED BLOOD COUNT 5.26 x10e6/uL (4.3-5.7); RED CELL DISTRIBUTION WIDTH 12.5 % (11.7-14.4)
[2019-01-20] MEDS ORDERED: ONDANSETRON HCL INJ 2MG/ML 2ML 2 MG/ML VIAL IV NR (20:00)
[2019-01-20] MEDS ORDERED: LEVETIRACETAM 500MG/5ML VIAL 1,000 MG in SODIUM CHLORIDE 0.9% 100 ML 100 ML IV SCH (20:00)
--- NOTE | 2019-01-20 20:02 | Diagnostic Imaging Report ---
EXAMINATION: Head and cervical spine CT without contrast. HISTORY: Status post seizure and fall, vomiting. Pain COMPARISON: None. TECHNIQUE: Multidetector axial images were obtained without contrast from the foramen magnum to the vertex and through the cervical spine. The images were reconstructed using brain and bone algorithms. Thin section brain images were reformatted into coronal and sagittal planes. Dose modulation, iterative reconstruction, and/or weight based adjustment of the mA/kV was utilized to reduce the radiation dose to as low as reasonably achievable. HEAD CT FINDINGS: Skull/difficult/: No lytic or blastic lesions. No fractures. Parenchyma: Normal. No mass, hemorrhage or CT evidence of acute vascular insult. Brain volume: Normal for age. Ventricles: No hydrocephalus or displacement. Arteries: No density suggestive of thrombus. Dural sinuses: No abnormal density. Extra-axial spaces: No abnormal density. Foramen magnum: No mass, Chiari malformation, or basilar invagination. Sella: No obvious mass. Paranasal/mastoid sinuses: Imaged portions unremarkable. CERVICAL SPINE CT FINDINGS: Alignment:Normal alignment and lordosis. Soft tissues: Normal. Vertebrae: Normal height and density. No acute fracture, infection or neoplasm. Degenerative changes: None IMPRESSION: Head CT: No intracranial abnormality, particularly no hemorrhage. Cervical spine CT: No abnormalities, particularly no acute fractures or dislocations. Note: Acute post traumatic spinal cord, vascular or ligamentous injury cannot adequately be assessed with CT. Signed by: Dr. Kristen Garnica M.D. on 01/20/2019 7:59 PM
[2019-01-20] MEDS ORDERED: FAMOTIDINE 20 MG/2 ML VIAL IV NR (20:11)
[2019-01-20 20:13] LABS: ALANINE AMINOTRANSFERASE 14 IU/L (0-55); ALBUMIN 5.1 g/dL (3.5-5.0); ALBUMIN/GLOBULIN RATIO 1.6 (0.8-2.0); ALKALINE PHOSPHATASE 96 IU/L (40-150); BLOOD UREA NITROGEN 9 mg/dL (7-26); BUN/CREATININE RATIO 9 (6-25); CALCIUM 10.7 mg/dL (8.4-10.2); CARBON DIOXIDE 28 mmol/L (22-29); CHLORIDE 102 mmol/L (98-107); CREATINE KINASE 116 IU/L (30-200); CREATININE, SERUM 0.97 mg/dL (0.72-1.25); EST GLOMERULAR FILTRATION RATE > 60 ML/MIN (60-); GLUCOSE 122 mg/dL (74-118); SODIUM 142 mmol/L (136-145)
[2019-01-20 20:55] LABS: BILIRUBIN,URINE MODERATE (NEGATIVE); CLARITY,URINE CLOUDY (CLEAR); COLOR,URINE YELLOW (YELLOW); KETONES,URINE 1+ (NEGATIVE); LEUKOCYTE ESTERASE ,URINE NEGATIVE (NEGATIVE); NITRITE,URINE NEGATIVE (NEGATIVE); URINE UROBILINOGEN 0.2 mg/dL (0.2 - 1)
[2019-01-20 20:56] LABS: PROTEIN,URINE DIPSTICK 2+ (NEGATIVE)
[2019-01-20 21:03] LABS: AMPHETAMINES SCREEN,URINE POSITIVE (NEGATIVE); PHENCYCLIDINE SCREEN,URINE NEGATIVE (NEGATIVE)
[2019-01-20 21:04] LABS: BENZODIAZEPINES SCREEN,URINE NEGATIVE (NEGATIVE)
[2019-01-20 21:07] LABS: AMORPHOUS SEDIMENT,URINE FEW (FEW); BACTERIA,URINE FEW /HPF
[2019-01-20 21:08] LABS: MUCUS,URINE MANY (RARE)
== END 2019-01-20 21:29 | disposition home or self-care (01) ==
LOC: ER 19:18
DX: G40.309 Generalized idiopathic epilepsy and epileptic syndromes, not intractable, without status epilepticus (principal); F17.210 Nicotine dependence, cigarettes, uncomplicated
CPT/HCPCS: 36415; 70450; 72125; 80053; 80307; 81001; 82550; 82553; 84484; 85025; 96374; 99284; J1953; J2405

== ENCOUNTER 2019-01-20 22:06 | Emergency (ER) | payer SELFPAY ==
[~2019-01-20] VITALS: Ht 154.9 cm; Wt 58.5 kg
[2019-01-20] MEDS ORDERED: PANTOPRAZOLE 40 MG 10ML VIAL IV STA (22:08)
[2019-01-20] MEDS ORDERED: ONDANSETRON HCL INJ 2MG/ML 2ML 2 MG/ML VIAL IV STA ×2 (22:08→22:17)
[2019-01-20] MEDS ORDERED: MORPHINE SULFATE INJ 4 MG/ML INJ 1ML IV ONE (22:15)
[2019-01-20] MEDS ORDERED: SODIUM CHLORIDE 0.9% 1000ML 1,000 ML IV ONE (22:15)
[2019-01-20] MEDS ORDERED: HYDROMORPHONE 1MG/1ML INJ IV STA (22:17)
[2019-01-20 22:22] LABS: BASOPHILS % 0.1 % (0.0-1.0); HEMATOCRIT 45.1 % (38.2-49.6); HEMOGLOBIN 15.6 g/dL (14.0-18.0); LYMPHOCYTES % 8.4 % (18.0-39.1); MEAN CORPUSCULAR HEMOGLOBIN 30.5 pg (28-32); MEAN CORPUSCULAR HGB CONC 34.6 g/dL (31-35); MEAN CORPUSCULAR VOLUME 88.3 fL (81-99); MONOCYTES # (AUTO) 0.7 (0.2-0.8); MONOCYTES % 5.8 % (4.4-11.3); NEUTROPHILS # (AUTO) 10.4 (2.1-6.9); NEUTROPHILS % 85.3 % (38.7-80.0); PLATELET COUNT 274 x10e3/uL (140-360); RED BLOOD COUNT 5.11 x10e6/uL (4.3-5.7); RED CELL DISTRIBUTION WIDTH 12.2 % (11.7-14.4)
[2019-01-20] MEDS ORDERED: PANTOPRAZOL 40MG/SOD CHL 0.9% 50 ML IV ONE (22:32)
[2019-01-20 22:46] LABS: ALANINE AMINOTRANSFERASE 14 IU/L (0-55); ALBUMIN 4.9 g/dL (3.5-5.0); ALBUMIN/GLOBULIN RATIO 1.5 (0.8-2.0); ALKALINE PHOSPHATASE 94 IU/L (40-150); ANION GAP 17.4 mmol/L (8-16); BLOOD UREA NITROGEN 9 mg/dL (7-26); BUN/CREATININE RATIO 10 (6-25); CALCIUM 10.2 mg/dL (8.4-10.2); CARBON DIOXIDE 25 mmol/L (22-29); CHLORIDE 101 mmol/L (98-107); CREATININE, SERUM 0.87 mg/dL (0.72-1.25); EST GLOMERULAR FILTRATION RATE > 60 ML/MIN (60-); GLUCOSE 114 mg/dL (74-118); POTASSIUM 4.4 mmol/L (3.5-5.1); SODIUM 139 mmol/L (136-145)
[2019-01-20 22:47] LABS: AMYLASE 60 U/L (25-125); LIPASE 14 U/L (8-78)
[2019-01-20] MEDS ORDERED: SODIUM CHLORIDE 0.9% 50ML 50 ML ONE (22:58)
[2019-01-20] MEDS ORDERED: IOPAMIDOL 370 MG/ML 200 ML INFUS..BTL INJ ONE (22:58)
--- NOTE | 2019-01-20 23:47 | Diagnostic Imaging Report ---
EXAM: CT of the abdomen and pelvis WITH contrast HISTORY: Abdominal pain, vomiting, nausea COMPARISON: None available. TECHNIQUE: The abdomen and pelvis were scanned utilizing a multidetector helical scanner. Coronal and sagittal reformats are provided. PROTOCOL: Routine IV CONTRAST: 100 cc of Isovue-370. ORAL CONTRAST: None, which limits sensitivity and specificity of the exam. RADIATION DOSE: Total DLP: 165.07 mGy*cm Estimated effective dose: (DLP x 0.015 x size factor) Dose modulation, iterative reconstruction, and/or weight based adjustment of the mA/kV was utilized to reduce the radiation dose to as low as reasonably achievable. COMPLICATIONS: None FINDINGS: Paucity of intra-abdominal and intra-pelvic fat partially limits the evaluation. LOWER THORAX: Mild edema and thickening of the distal esophageal wall. HEPATOBILIARY: No mass. No biliary dilation. No calcified gallstone. SPLEEN: No splenomegaly. PANCREAS: No focal masses or ductal dilatation. ADRENALS: No discrete adrenal nodule. KIDNEYS/URETERS: No hydronephrosis, stones, or definite solid mass lesions. PELVIC ORGANS/BLADDER: The urinary bladder is predominantly decompressed, which limits evaluation, but no focal abnormality is identified within this limitation. GI TRACT: No dilation or wall thickening identified. The appendix is normal. PERITONEUM / RETROPERITONEUM: No free air or fluid. LYMPH NODES: No pathologically enlarged lymph node. VESSELS: Unremarkable. BONES: No aggressive osseous lesion or acute fracture. Incidentally, bilateral L5 pars interarticularis defects without associated anterolisthesis. SOFT TISSUES: Unremarkable. IMPRESSION: 1. Mild distal esophagitis. 2. 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 Signed by: Dr. Arturo Rawls D.O., M.M.M. on 01/20/2019 11:44 PM
[2019-01-21 00:31] VITALS: BP 95/57
== END 2019-01-21 00:45 | disposition home or self-care (01) ==
LOC: ER 22:06
DX: R10.13 Epigastric pain (principal); R10.33 Periumbilical pain; R11.2 Nausea with vomiting, unspecified; K29.00 Acute gastritis without bleeding; F17.210 Nicotine dependence, cigarettes, uncomplicated
CPT/HCPCS: 36415; 74177; 80053; 82150; 83690; 85025; 99283; J2270; J2405; J7030; Q9967